=== PATIENT | female | born 1975 | race Caucasian/White ===

== ENCOUNTER 2022-12-25 10:47 | Day surgery (SDC) | payer OTHER, SELFPAY ==
--- NOTE | 2022-12-25 10:59 | US_ITS ---
[address] [address] Patient Name: JORDAN MUÑIZ MRN: [id number] date: 1975 Sex: F Assigned Patient Location: US Current Patient Location: Accession/Order Number: [id number] Exam Date: 12/25/2022 11:00 Report Date: 12/25/2022 13:35 At the request of: MING GUERRERO Procedure: US biopsy thyroid EXAMINATION: US biopsy thyroid, US biopsy FNA add lesion HISTORY: Bilateral thyroid nodule COMPARISON: Ultrasound thyroid 12/11/2022 TECHNIQUE: After obtaining informed consent, ultrasound-guided fine needle aspiration was performed in the usual sterile manner. FINDINGS: IMAGING: Ultrasound. BIOPSY NEEDLE: 25-gauge; 3 separate passes within the right lobe nodule and left lobe nodule. LOCATION: Right lobe 3.7 x 1.5 x 1.5 cm heterogeneous nodule; left lobe 2.3 x 1.3 x 1.3 cm partially cystic and solid nodule. SPECIMEN TYPE: Cellular tissue. LOCAL ANESTHETIC: Buffered Xylocaine. COMPLICATIONS: None. LABORATORY: Prepared slide smears and washings for cell block evaluation. OTHER: Negative. PATHOLOGY: Pending. An addendum will be added when results are available. US/US biopsy thyroid IMPRESSION: 1. Uneventful ultrasound guided fine needle aspiration (FNA). 2. Pathology results are pending. Electronically authenticated by: BART KNIGHT Date: 12/25/2022 13:35
[2022-12-25 11:05] VITALS: BP 89/53; PULSE 85; O2SAT 98
--- NOTE | 2022-12-25 11:18 | US_ITS ---
[address] [address] Patient Name: JORDAN MUÑIZ MRN: [id number] date: 1975 Sex: F Assigned Patient Location: US Current Patient Location: Accession/Order Number: [id number] Exam Date: 12/25/2022 11:00 Report Date: 12/25/2022 13:35 At the request of: MING GUERRERO Procedure: US biopsy FNA add lesion EXAMINATION: US biopsy thyroid, US biopsy FNA add lesion HISTORY: Bilateral thyroid nodule COMPARISON: Ultrasound thyroid 12/11/2022 TECHNIQUE: After obtaining informed consent, ultrasound-guided fine needle aspiration was performed in the usual sterile manner. FINDINGS: IMAGING: Ultrasound. BIOPSY NEEDLE: 25-gauge; 3 separate passes within the right lobe nodule and left lobe nodule. LOCATION: Right lobe 3.7 x 1.5 x 1.5 cm heterogeneous nodule; left lobe 2.3 x 1.3 x 1.3 cm partially cystic and solid nodule. SPECIMEN TYPE: Cellular tissue. LOCAL ANESTHETIC: Buffered Xylocaine. COMPLICATIONS: None. LABORATORY: Prepared slide smears and washings for cell block evaluation. OTHER: Negative. PATHOLOGY: Pending. An addendum will be added when results are available. US/US biopsy FNA add lesion IMPRESSION: 1. Uneventful ultrasound guided fine needle aspiration (FNA). 2. Pathology results are pending. Electronically authenticated by: BART KNIGHT Date: 12/25/2022 13:35
[2022-12-25] MEDS: LIDOCAINE HCL 10 ML, SODIUM BICARBONATE 1 MEQ INJ (12:00)
== END 2022-12-25 12:15 | disposition home or self-care (01) ==
LOC: US 10:50
PROVIDERS: Radiology Diagnostic Radiology; Visit Provider Otolaryngology
DX: E04.1 Nontoxic single thyroid nodule (principal)
CPT/HCPCS: 10005; 10006; 88173; 88302

== ENCOUNTER 2023-04-24 09:45 | Outpatient (OUT) | payer OTHER, SELFPAY ==
--- NOTE | 2023-04-24 | XR_ITS ---
The [address] [address] Patient Name: JORDAN MUÑIZ MRN: [id number] date: 1975 Sex: F Assigned Patient Location: [facility] Current Patient Location: [facility] Accession/Order Number: [id number] Exam Date: 04/24/2023 10:08 Report Date: 04/24/2023 14:30 At the request of: GREGG NEW Procedure: XR ankle RT min 3V PROCEDURE: XR ankle RT min 3V DATE: 04/24/2023 9:08 AM [employer]TER COMPARISONS: None CLINICAL INDICATION: RIGHT ANKLE PAIN FINDINGS: There is no evidence of fractures or other osseous abnormalities. XR/XR ankle RT min 3V IMPRESSION: Right ankle radiographs show no evidence of abnormalities. Electronically authenticated by: CHINA FARNSWORTH Date: 04/24/2023 14:30
--- NOTE | 2023-04-24 | XR_ITS ---
The [address] [address] Patient Name: JORDAN MUÑIZ MRN: [id number] date: 1975 Sex: F Assigned Patient Location: [facility] Current Patient Location: [facility] Accession/Order Number: [id number] Exam Date: 04/24/2023 10:08 Report Date: 04/24/2023 14:29 At the request of: GREGG NEW Procedure: XR foot RT min 3V PROCEDURE: XR foot RT min 3V DATE: 04/24/2023 9:08 AM [employer] COMPARISONS: None CLINICAL INDICATION: RIGHT FOOT PAIN FINDINGS: There is no evidence of fractures or other osseous abnormalities. XR/XR foot RT min 3V IMPRESSION: Right foot radiographs show no evidence of abnormalities. Electronically authenticated by: CHINA FARNSWORTH Date: 04/24/2023 14:29
== END 2023-04-24 09:46 | disposition home or self-care (01) ==
LOC: RAD 09:46
PROVIDERS: Visit Provider Podiatrist Foot & Ankle Surgery
DX: M79.671 Pain in right foot (principal); M25.571 Pain in right ankle and joints of right foot
CPT/HCPCS: 73610; 73630